=== PATIENT | female | born 1955 | race Caucasian/White ===

== ENCOUNTER 2016-09-24 07:45 | Outpatient (CLI) | payer OTHER ==
[~2016-09-24 07:45] MED LIST: ASPIRIN81 M1 PO; LANTUS SOL100 UNITS/ SC; LISINOPRIL20 MG PO; METFORMIN HCL1000 MG PO; NOVOLOG PE100 UNITS/ SC; SIMVASTATIN40 MG PO
--- NOTE | 2016-09-24 10:35 | DIAGNOSTIC IMAGING REPORT ---
PROCEDURE: US SOFT TISSUE THYR/NECK/HEAD INDICATION: THYROID NODULE TECHNIQUE: Silva scale and color Doppler sonographic images of the thyroid gland were obtained. COMPARISON: None. FINDINGS: The right thyroid lobe measures 3.5 x 1.5 x 1.6 cm. The left thyroid lobe measures 2.7 x 0.5 x 1.0 cm. The isthmus measures 2.9 mm in thickness. The right thyroid lobe is mildly heterogeneous secondary to a few sub-centimeter nodules, a few isoechoic to gland and a few hypoechoic to gland, ranging in size from 3 mm to 7 mm. There is a dominant nodule in the right aspect of the isthmus measuring 2.1 x 0.9 x 1.7 cm with mild peripheral hypervascularity and mildly hypoechoic echotexture to gland . The left lobe is diffusely diminutive but fairly homogeneous in echotexture. No suspicious calcification. Color Doppler imaging demonstrates homogeneous vascularity throughout the gland. No significant adenopathy adjacent to the gland. IMPRESSION: 1. Dominant 2.1 cm right isthmus nodule. While it is appearance is fairly benign, fine needle aspiration to document benignity is recommended. 2. The right thyroid lobe demonstrates a few sub-centimeter nodules. 1-year follow-up is recommended. 3. Rather diminutive thyroid gland overall. Correlate with history of prior thyroiditis or thyroid replacement therapy.
== END 2016-09-24 23:00 ==
LOC: US SRH 07:45
DX: E04.1 Nontoxic single thyroid nodule (principal)